=== PATIENT | male | born 1940 | race Caucasian/White ===

== ENCOUNTER 2018-04-29 12:14 | Outpatient (REF) | payer MEDICARE, BC, SELFPAY ==
[2018-05-03 10:14] LABS: PSA, Diagnostic <0.1 ng/ml (0-6.5)
== END 2018-04-29 12:34 ==
LOC: NCHCN 12:14
PROVIDERS: PCP Internal Medicine; Visit Provider Internal Medicine
DX: Z85.46 Personal history of malignant neoplasm of prostate (principal)
CPT/HCPCS: 84153

== ENCOUNTER 2019-06-09 20:24 | Outpatient (REF) | payer MEDICARE, BC, SELFPAY ==
[2019-06-09 19:48] LABS: HCT 43.1 % (40.0-50.0); Mean Corp. HGB Concentration 32.5 g/dL (32.0-36.0); Mean Corpuscular Hemoglobin 31.6 pg (27.0-33.0); Mean Corpuscular Volume 97.3 fL (80-95); Mean Platelet Volume 8.7 fL (8.0-11.0); Platelet Count 362 x1000/uL (130-400); RBC 4.43 m/cumm (4.50-6.00); RBC Distribution Width 12.5 % (11.8-14.1); White Blood Cell Count 4.71 k/cumm (4.4-10.8)
[2019-06-09 19:49] LABS: ALT 44 U/L (16-63); Anion Gap 5.3 mmol/L (3-11); BUN 19 mg/dL (7-18); CO2 30.7 mmol/L (21.0-32.0); CREATININE 0.82 mg/dL (0.70-1.30); Chloride 101 mmol/L (98-107); Glucose 94 mg/dL (74-106); LDL CHOLESTEROL 84 mg/dL (<100); Potassium 4.6 mmol/L (3.5-5.1); Sodium 137 mmol/L (136-145); TSH 0.98 uIU/mL (0.36-3.74)
[2019-06-13 11:20] LABS: PSA, Diagnostic <0.1 ng/mL (0.0-6.5)
== END 2019-06-09 20:44 ==
LOC: NCHCN 20:24
PROVIDERS: PCP Internal Medicine; Visit Provider Internal Medicine
DX: E78.5 Hyperlipidemia, unspecified (principal); F32.9 Major depressive disorder, single episode, unspecified; Z85.46 Personal history of malignant neoplasm of prostate
CPT/HCPCS: 80048; 83721; 85027; 84153; 84443; 84460

== ENCOUNTER 2019-12-15 11:13 | Outpatient (REF) | payer MEDICARE, BC, SELFPAY ==
[2019-12-19 10:51] LABS: PSA, Screening <0.1 ng/mL (0.0-6.5)
== END 2019-12-15 11:33 ==
LOC: NCHCN 11:13
PROVIDERS: PCP Internal Medicine; Referring Provider Internal Medicine; Visit Provider Internal Medicine
DX: Z85.46 Personal history of malignant neoplasm of prostate (principal)
CPT/HCPCS: 84153

== ENCOUNTER 2020-06-14 15:10 | Outpatient (REF) | payer MEDICARE, BC, SELFPAY ==
[2020-06-14 19:04] LABS: ALT 37 U/L (16-63); Anion Gap 8.1 mmol/L (3-11); BUN 22 mg/dL (7-18); CO2 26.9 mmol/L (21.0-32.0); CREATININE 0.8 mg/dL (0.70-1.30); Calcium 8.9 mg/dL (8.5-10.1); Chloride 99 mmol/L (98-107); Glucose 108 mg/dL (74-106); LDL CHOLESTEROL 127 mg/dL (<100); Potassium 4.2 mmol/L (3.5-5.1); Sodium 134 mmol/L (136-145); TSH 0.96 uIU/mL (0.36-3.74)
== END 2020-06-14 15:11 | disposition home or self-care (01) ==
LOC: NCHCN 15:10
PROVIDERS: PCP Internal Medicine; Visit Provider Internal Medicine
DX: F32.9 Major depressive disorder, single episode, unspecified (principal); E78.5 Hyperlipidemia, unspecified; M21.611 Bunion of right foot
CPT/HCPCS: 80048; 83721; 84443; 84460

== ENCOUNTER 2020-12-17 14:24 | Outpatient (REF) | payer MEDICARE, BC, SELFPAY ==
[2020-12-18 17:16] LABS: PSA, Screening <0.1 ng/mL (0.0-6.5)
== END 2020-12-17 14:25 | disposition home or self-care (01) ==
LOC: NCHCN 14:24
PROVIDERS: PCP Internal Medicine; Visit Provider Internal Medicine
DX: M16.12 Unilateral primary osteoarthritis, left hip (principal); F32.9 Major depressive disorder, single episode, unspecified; N39.41 Urge incontinence; Z85.46 Personal history of malignant neoplasm of prostate; Z12.5 Encounter for screening for malignant neoplasm of prostate
CPT/HCPCS: 84153

== ENCOUNTER 2021-06-17 12:13 | Outpatient (REF) | payer MEDICARE, BC, SELFPAY ==
[2021-06-17 19:54] LABS: ALT 33 U/L (16-63); Anion Gap 8.6 mmol/L (3-11); BUN 20 mg/dL (7-18); CO2 27.4 mmol/L (21.0-32.0); Calcium 8.9 mg/dL (8.5-10.1); Chloride 100 mmol/L (98-107); Glucose 105 mg/dL (74-106); LDL CHOLESTEROL 103 mg/dL (<100); Potassium 4.5 mmol/L (3.5-5.1); Sodium 136 mmol/L (136-145)
[2021-06-18 18:11] LABS: PSA, Diagnostic <0.1 ng/mL (0.0-6.5)
== END 2021-06-17 12:14 | disposition home or self-care (01) ==
LOC: NCHCN 12:13
PROVIDERS: PCP Internal Medicine; Visit Provider Internal Medicine
DX: N39.41 Urge incontinence (principal); Z85.46 Personal history of malignant neoplasm of prostate; F32.9 Major depressive disorder, single episode, unspecified; I77.810 Thoracic aortic ectasia
CPT/HCPCS: 80048; 83721; 84153; 84460

== ENCOUNTER 2022-05-02 14:40 | Outpatient (REF) | payer MEDICARE, BC, SELFPAY ==
[2022-05-02 20:07] LABS: Anion Gap 4.8 mmol/L (3-11); BUN 17 mg/dL (7-18); CO2 28.2 mmol/L (21.0-32.0); CREATININE 0.9 mg/dL (0.70-1.30); Calcium 9.2 mg/dL (8.5-10.1); Calculated LDL 87 mg/dL (<100); Chloride 100 mmol/L (98-107); Cholesterol 154 mg/dL (<200); Estimated GFR 86.34 (mL/min/1.73m2); Glucose 110 mg/dL (74-106); HDL Cholesterol 58 mg/dL (40-60); Potassium 4.4 mmol/L (3.5-5.1); Sodium 133 mmol/L (136-145); Triglyceride 49 mg/dL (<150)
[2022-05-05 10:09] LABS: PSA, Diagnostic <0.1 ng/mL (<=6.5)
== END 2022-05-02 14:41 | disposition home or self-care (01) ==
LOC: NCHCN 14:40
PROVIDERS: PCP Internal Medicine; Visit Provider Internal Medicine
DX: E78.5 Hyperlipidemia, unspecified (principal); Z85.46 Personal history of malignant neoplasm of prostate
CPT/HCPCS: 80048; 80061; 84153

== ENCOUNTER 2022-05-15 08:59 | Outpatient (REF) | payer MEDICARE, BC, SELFPAY ==
[2022-05-15 18:57] LABS: Sodium 139 mmol/L (136-145); TSH (W/Ref FT4) 1.14 uIU/mL (0.36-3.74)
[2022-05-15 19:07] LABS: Sodium, Urine 132 mmol/L
[2022-05-16 19:39] LABS: Osmolality, Urine 694 mOsm/kg (150-1150)
== END 2022-05-15 09:00 | disposition home or self-care (01) ==
LOC: NCHCN 08:59
PROVIDERS: PCP Internal Medicine; Visit Provider Internal Medicine
DX: E87.1 Hypo-osmolality and hyponatremia (principal)
CPT/HCPCS: 83935; 84295; 84300; 84443

== ENCOUNTER 2023-07-08 11:56 | Outpatient (REF) | payer MEDICARE, BC, SELFPAY ==
[2023-07-08 20:41] LABS: HGB 13.3 g/dL (13.5-17.5); MCH 31.3 pg (27.0-33.0); MCHC 32.4 % (32.0-36.0); MCV 97 fL (80-95); MPV 8.5 fL (8.0-11.0); Platelet Count 321 10^3/uL (130-400); RBC 4.25 10^6/uL (4.36-5.78); RDW 12.3 % (11.8-14.1); RDW-SD 43.8 fL; WBC 4.83 10^3/uL (4.4-10.8)
[2023-07-08 21:05] LABS: ALT 29 U/L (16-63); AST 30 U/L (15-37); Albumin 3.7 g/dL (3.4-5.0); Alkaline Phosphatase 79 U/L (46-116); BUN 17 mg/dL (7-18); Bilirubin, Total 0.4 mg/dL (0.2-1.0); CREATININE 0.8 mg/dL (0.70-1.30); Chloride 102 mmol/L (98-107); Estimated GFR 88.91 (mL/min/1.73m2); Glucose 103 mg/dL (74-106); Potassium 4.1 mmol/L (3.5-5.1); Sodium 138 mmol/L (136-145); TSH 1.12 uIU/Ml (0.36-3.74); Total Protein 7.2 g/dL (6.4-8.2)
== END 2023-07-08 11:57 | disposition home or self-care (01) ==
LOC: NCHCN 11:56
PROVIDERS: PCP Internal Medicine; Visit Provider Internal Medicine
DX: R53.83 Other fatigue (principal); E78.5 Hyperlipidemia, unspecified; G47.00 Insomnia, unspecified
CPT/HCPCS: 80053; 85027; 84443

== ENCOUNTER 2024-07-27 17:08 | Outpatient (REF) | payer MEDICARE, BC, SELFPAY ==
[2024-07-27 21:41] LABS: BUN 19 mg/dL (7-18); CREATININE 1.1 mg/dL (0.70-1.30); Calcium 9.1 mg/dL (8.5-10.1); Chloride 101 mmol/L (98-107); Estimated GFR 67.02 (mL/min/1.73m2); Glucose 135 mg/dL (74-106); Potassium 4.4 mmol/L (3.5-5.1); Sodium 136 mmol/L (136-145)
[2024-07-28 19:18] LABS: PSA, Diagnostic <0.1 ng/mL (<=6.5)
== END 2024-07-27 17:09 | disposition home or self-care (01) ==
LOC: NCHCN 17:08
PROVIDERS: PCP Internal Medicine; Visit Provider Internal Medicine
DX: C61 Malignant neoplasm of prostate (principal)
CPT/HCPCS: 80048; 84153